=== PATIENT | female | born 1965 | race African-American/Black ===

== ENCOUNTER 2019-02-19 12:31 | Emergency (ER) | payer MEDICAID, OTHER | END 2019-02-19 17:13 | disposition home or self-care (01) | LOC: E/R 12:31 | DX: R10.9 Unspecified abdominal pain (principal); S90.822A Blister (nonthermal), left foot, initial encounter; S90.821A Blister (nonthermal), right foot, initial encounter; X50.3XXA Overexertion from repetitive movements, initial encounter; Y92.9 Unspecified place or not applicable; Z59.0 Homelessness | CPT/HCPCS: 99282; Z7502 ==

== ENCOUNTER 2019-02-27 11:03 | Emergency (ER) | payer MEDICAID | END 2019-02-27 13:16 | disposition home or self-care (01) | LOC: FTE 13:16 | DX: M79.671 Pain in right foot (principal); M79.672 Pain in left foot | CPT/HCPCS: 99282; Z7502 ==